=== PATIENT | male | born 1980 | race African-American/Black ===

== ENCOUNTER 2019-02-23 13:07 | Emergency (ER) | payer OTHER ==
[~2019-02-23] VITALS: Ht 172.7 cm; Wt 68.0 kg
[2019-02-23] MEDS ORDERED: SODIUM CHLORIDE 0.9% 1,000 ML IV ONE (15:24)
[2019-02-23] MEDS ORDERED: KETOROLAC 15MG/ML VIAL IV ONE (15:30)
[2019-02-23 15:53] LABS: CHLORIDE 104 mEq/L (98-107); EOSINOPHILS % 3.8 % (0.0-5.0); HEMATOCRIT. 38.3 % (42.0-52.0); MEAN CORPUSCULAR HEMOGLOBIN 30.5 pg (28.0-32.0); MEAN CORPUSCULAR VOLUME 89.9 fL (80.0-94.0); MEAN PLATELET VOLUME 10.9 fl (7.4-10.4); MONOCYTES % 9.2 % (2.0-8.0); PLATELET 160 x1000/uL (130-400); RED BLOOD CELL COUNT 4.26 mill/uL (4.7-6.1); RED CELL DISTRIBUTION WIDTH 13.5 % (11.6-14.6)
[2019-02-23 18:20] VITALS: BP 109/69
== END 2019-02-23 18:24 | disposition home or self-care (01) ==
LOC: ER 16:02
DX: R55 Syncope and collapse (principal); R07.89 Other chest pain; Z91.041 Radiographic dye allergy status
CPT/HCPCS: 36415; 71045; 80053; 83735; 83880; 84484; 85025; 93005; 96360; 99284; J1885; J7030; Z7610

== ENCOUNTER 2019-03-11 15:07 | Emergency (ER) | payer OTHER ==
[~2019-03-11] VITALS: Ht 177.8 cm; Wt 79.0 kg
[2019-03-11 17:11] VITALS: BP 122/76
== END 2019-03-11 18:18 | disposition left against medical advice (07) ==
LOC: ER 15:07
DX: Z53.21 Procedure and treatment not carried out due to patient leaving prior to being seen by health care provider (principal)